=== PATIENT | female | born 1960 | race Caucasian/White ===

== ENCOUNTER → 2016-10-01 | Outpatient (CLI) | payer BC ==
[~2016-10-01] MED LIST: ALEVE220 M1 PO; MULTI VITAMIN1 EACH PO
--- NOTE | ~2016-10-01 | MR17 ---
[facility] A Service of [facility] & [facility] [place] RADIOLOGY TEXT RESULTS PATIENT: CLARA LUNA LOCATION: [facility] : 64 UNIT #: [id number] AGE: [address]: Tony Durand MD SEX: F ORDER DR: [id number] [address] [address] [id number] O MR#: [id number] Acc #: [id number] NAME: CLARA LUNA : 1960 SEX: F STUDY DATE/TIME: 10/01/2016 16:05 UNIT: [facility] ROOM: STUDY DESCRIPTION: MR Brain WWo Contrast Attending Physician: Tony Durand M.D. Referring Physician: Tony Durand M.D. Ordering Physician: Tony Durand M.D. Primary Care Physician: Tony Durand M.D. MRI CENTER REPORT This report is preliminary unless electronic signature is present. EXAM MRI of the brain with and without contrast dated 10/01/2016 COMPARISON None HISTORY Patient had a sudden onset of fatigue, muscle loss on the right side and is worse. Has visual disturbance in the right eye. Severe memory loss. The tech notes states that patient and blood work done on Thursday with results suggesting possible lupus. Differential diagnosis includes multiple sclerosis. FINDINGS Multisequence multiplanar imaging of the brain was obtained with and without contrast. 11 mL of MultiHance was administered intravenously. No acute stroke, space-occupying intracranial mass, mass effect, midline shift or hydrocephalus. There are few (less than 5) hyperintense T2 signal lesions noted in the white matter particularly in bifrontal subcortical and periventricular regions. The relatively larger one is in the right frontal centrum semiovale measuring 7.0 mm. Nonspecific and nonenhancing. Vascular flow voids of the major cerebral arteries and dural venous sinuses are not occluded in these thicker slices. There is moderate right mastoid mucosal thickening. Nasal septum is deviated to the left. Imaged orbits and the ocular structures are unremarkable. Postcontrast sequences do not demonstrate enhancing mass. Thick slices through the sella with the pituitary gland, pineal region and upper cervical spine are within normal limits. IMPRESSION 1. Less than five tiny hyperintense T2-signal lesions are noted in the bifrontal subcortical and periventricular white matter. They are likely related to mild chronic microvascular ischemic change or white STS. [facility] A Service of [facility] & [facility] [place] RADIOLOGY TEXT RESULTS PATIENT: CLARA LUNA LOCATION: [facility] : 64 UNIT #: [id number] AGE: [address]: Tony Durand MD SEX: F ORDER DR: matter disease. It is very nonspecific. MS and lupus can cause white matter signal changes. They are not pathognomonic for them. 2. Mucosal thickening is noted in the right maxillary antrum which appears to be relatively nodular in the postcontrast sequences favoring mucous retention cyst. It could also be related to chronic sinusitis. Well-defined layering fluid is difficult to see to suggest superimposed acute disease. Dictated by... Jimmy Campbell M.D. THIS IS AN ELECTRONICALLY VERIFIED REPORT Jimmy Campbell M.D. at 10/02/2016 4:27 PM AUDI/chad TD: 10/02/2016 09:08 JOB #: [id number] MRI CENTER REPORT Page 1 of 1
== END | disposition home or self-care (01) ==
LOC: SMRI 15:25
DX: G35 Multiple sclerosis (principal); R90.89 Other abnormal findings on diagnostic imaging of central nervous system; R90.82 White matter disease, unspecified
CPT/HCPCS: 70553; A9581